=== PATIENT | female | born 2000 | race Two or more races ===

== ENCOUNTER 2022-12-08 07:02 | Outpatient (CLI) | payer OTHER | END 2022-12-08 07:03 | disposition home or self-care (01) | LOC: LAB 07:02 | PROVIDERS: ATTEND General Practice | DX: E55.9 Vitamin D deficiency, unspecified (principal); E11.9 Type 2 diabetes mellitus without complications; D51.3 Other dietary vitamin B12 deficiency anemia; M06.9 Rheumatoid arthritis, unspecified; Z12.11 Encounter for screening for malignant neoplasm of colon; N39.0 Urinary tract infection, site not specified; J31.1 Chronic nasopharyngitis; R50.9 Fever, unspecified; E78.2 Mixed hyperlipidemia; E03.8 Other specified hypothyroidism ==

== ENCOUNTER 2024-05-29 17:54 | Emergency (ER) | payer OTHER ==
[~2024-05-29] VITALS: Ht 167.6 cm; Wt 52.6 kg
[2024-05-29] MEDS ORDERED: ANTICONCEPTIVAS (18:50)
[2024-05-29 20:26] LABS: HEMATOCRIT 35.5 % (36.0-45.00); HEMOGLOBIN 12.3 g/dL (12.0-15.00); MEAN CELL VOLUME 96.9 fL (80.00-100.00); MEAN CORPUSCULAR HEMOGLOBIN 33.5 pg (27.00-32.0); MEAN CORPUSCULAR HGB CONC 34.6 g/dl (32.0-36.0); PLATELET COUNT 202 K/uL (150-450); RED BLOOD COUNT 3.67 M/uL (4.00-6.00); RED CELL DISTRIBUTION WIDTH 13.5 % (11.5-14.5)
[2024-05-29 20:27] LABS: URINE APPEARANCE Clear; URINE BILIRRUBIN Negative (NEGATIVE); URINE BLOOD Large; URINE COLOR Yellow; URINE GLUCOSE Negative (NEGATIVE); URINE KETONE Negative (NEGATIVE); URINE LEUKOCYTE Small; URINE NITRATE Negative; URINE PROTEIN Trace (NEGATIVE); URINE UROBILINOGEN 0.2 E.U./dl
[2024-05-29 20:31] LABS: URINE BACTERIA 103.2 uL (0.0-1933); URINE RBC 375.2 uL (0.0-20.8)
== END 2024-05-29 22:29 | disposition home or self-care (01) ==
LOC: ER 17:55
PROVIDERS: Preventive Medicine Public Health & General Preventive Medicine
DX: N39.0 Urinary tract infection, site not specified (principal)

== ENCOUNTER 2024-10-23 18:27 | Emergency (ER) | payer OTHER ==
[~2024-10-23] VITALS: Ht 167.6 cm; Wt 53.5 kg
[~2024-10-23 18:27] MED LIST: ANTICONCEPTIVAS
[2024-10-23 19:49] LABS: PH,URINE 6.5 (5.0-8.0); URINE APPEARANCE Cloudy; URINE BILIRRUBIN Negative (NEGATIVE); URINE BLOOD Small; URINE COLOR Yellow; URINE GLUCOSE Negative (NEGATIVE); URINE KETONE Negative (NEGATIVE); URINE LEUKOCYTE Moderate; URINE NITRATE Negative; URINE PROTEIN 30 (NEGATIVE); URINE UROBILINOGEN 0.2 E.U./dl
[2024-10-23 19:53] LABS: URINE EPITHELIAL CELLS 13.4 uL (0.0-38.8); URINE RBC 92.2 uL (0.0-20.8); URINE WBC 1523.4 uL (0.0-23.2)
[2024-10-23 20:35] LABS: URINE BACTERIA > 9821.5 uL (0.0-1933); URINE CAST 0.44 uL (0.0-1.40)
== END 2024-10-23 20:41 | disposition home or self-care (01) ==
LOC: ER 18:29
DX: R30.0 Dysuria (principal); N39.0 Urinary tract infection, site not specified; Z91.013 Allergy to seafood

== ENCOUNTER 2025-05-29 13:02 | Inpatient (IN) | payer OTHER ==
[~2025-05-29] VITALS: Ht 167.6 cm; Wt 63.5 kg
[2025-06-03 03:33] VITALS: BP 120/74
[2025-06-03] MEDS ORDERED: AMPICILLIN SODIUM 2,000 MG VIAL IV STA (03:39)
[2025-06-03] MEDS ORDERED: RINGERS SOLUTION,LACTATED 1,000 ML IV SCH (03:45)
[2025-06-03 04:32] LABS: BASO % 0.3 % (0.1-1.2); EOS # 0.13 (0.04-0.54); EOS % 1.9 % (0.7-7.0); LYMPH # 1.63 (1.18-3.74); LYMPH % 24.1 % (19.3-53.1); MEAN PLATELET VOLUME 9.40 fl (9.4-12.4); MONO # 0.47 (0.24-0.82); MONO % 7.0 % (4.7-12.5); NEUT # 4.46 (1.56-6.13); NEUT % 66.0 % (34.0-71.1); RED CELL DISTRIBUTION WIDTH 12.7 % (11.6-14.4)
[2025-06-03 04:44] LABS: INR < 0.93
[2025-06-03 04:48] LABS: ALT/SGPT 21.0 U/L (12-78); AST/SGOT 21.0 U/L (15-37); BILIRUBIN TOTAL 0.36 mg/dL (0.3-1.2); BUN CREA RATIO 22.0 (7.0-25.0); CREATININE SERUM 0.46 mg/dL (0.55-1.02); GFR 166.89; GLOBULINA 3.6 G/DL (2.4-3.5); GLUCOSE FASTING 87.0 mg/dL (65-100); OSMOLALITY SERUM 278.0 MOSM/KG (275-295)
[2025-06-03 07:39] VITALS: BP 118/75
[2025-06-03] MEDS ORDERED: AMPICILLIN SODIUM 1,000 MG VIAL IV SCH (08:00)
[2025-06-03] MEDS ORDERED: OXYTOCIN 500 ML IV ONE (08:30)
[2025-06-03] MEDS ORDERED: MORPHINE SULFATE 4 MG/ML CARTRIDGE IV PRN (08:30)
[2025-06-03] MEDS ORDERED: CHLORHEXIDINE GLUCONATE 120 ML BOTTLE TOP ONE (09:00)
[2025-06-03] MEDS ORDERED: OXYTOCIN 20 UNITS/1000ML RL PIGGYBAG IV ONE (09:00)
[2025-06-03] MEDS ORDERED: ERYTHROMYCIN BASE OPHT 1GM EACH TUBE OP ONE (09:00)
[2025-06-03] MEDS ORDERED: LIDOCAINE HCL 1% 10ML VIAL ONE (09:00)
[2025-06-03] MEDS ORDERED: OXYTOCIN 1,000 ML IV SCH (10:00)
[2025-06-03] MEDS ORDERED: CHLORHEXIDINE GLUCONATE 120 ML BOTTLE TP ONE (10:00)
[2025-06-03 12:08] VITALS: BP 128/75
[2025-06-03 14:30] LABS: BASO % 0.1 % (0.1-1.2); EOS # 0.00 (0.04-0.54); EOS % 0.0 % (0.7-7.0); LYMPH # 0.68 (1.18-3.74); LYMPH % 4.7 % (19.3-53.1); MEAN PLATELET VOLUME 9.30 fl (9.4-12.4); MONO # 0.66 (0.24-0.82); MONO % 4.5 % (4.7-12.5); NEUT # 13.07 (1.56-6.13); NEUT % 90.1 % (34.0-71.1); RED CELL DISTRIBUTION WIDTH 12.8 % (11.6-14.4)
[2025-06-03] MEDS ORDERED: DOCUSATE SODIUM 100MG CAP PO SCH (17:00)
[2025-06-04 00:43] VITALS: BP 101/64
[2025-06-04 08:00] VITALS: BP 116/80
[2025-06-04] MEDS ORDERED: PNV,CALCIUM 72/IRON/FOLIC ACID 1 TAB TABLET PO SCH (09:00)
[2025-06-04 16:40] VITALS: BP 113/77
[2025-06-05 00:21] VITALS: BP 103/67
[2025-06-05 08:00] VITALS: BP 100/69
== END 2025-06-05 18:29 | disposition home or self-care (01) | DRG 807 ==
LOC: LDR 06-03 03:37 → OB/GYN 06-03 10:25
PROVIDERS: Obstetrics & Gynecology Gynecology; ADMIT Obstetrics & Gynecology; ATTEND Obstetrics & Gynecology
PROC: 10E0XZZ Delivery of Products of Conception, External Approach (ICD-10-PCS; principal; 2025-06-03)
PROC: 0KQM0ZZ Repair Perineum Muscle, Open Approach (ICD-10-PCS; 2025-06-03)
PROC: 4A1HXCZ Monitoring of Products of Conception, Cardiac Rate, External Approach (ICD-10-PCS; 2025-06-03)
DX: O70.1 Second degree perineal laceration during delivery (principal); Z37.0 Single live birth; Z3A.39 39 weeks gestation of pregnancy